=== PATIENT | female | born 1990 | race Caucasian/White ===

== ENCOUNTER → 2018-12-04 | Emergency (ER) | payer OTHER ==
[~2018-12-04] VITALS: Ht 160 cm; Wt 61.2 kg
[~2018-12-04] MED LIST: PROGESTERONE200 MG; TRAMADOL HCL-AP1 TAB PO
== END | disposition home or self-care (01) ==
LOC: ER
DX: S90.31XA Contusion of right foot, initial encounter (principal); S90.01XA Contusion of right ankle, initial encounter; X37.1XXA Tornado, initial encounter; Y93.89 Activity, other specified; Y92.69 Other specified industrial and construction area as the place of occurrence of the external cause; Y99.8 Other external cause status